=== PATIENT | female | born 1985 | race Caucasian/White ===

== ENCOUNTER 2018-05-16 04:25 | Outpatient (CLI) | payer OTHER ==
[~2018-05-16 04:25] MED LIST: ETON1VAG CERVICAL; FISH OIL OMEGA1 EACH PO; IBUP-1223 PO; LACT1CAP35 PO; MULT-658 PO; ONDA8TAB12 PO; OXYC-302 PO
[2018-05-16 04:43] VITALS: BP 111/63
== END 2018-05-16 05:52 | disposition home or self-care (01) ==
LOC: LDOP 04:25
PROVIDERS: ATTEND Obstetrics & Gynecology
DX: O62.9 Abnormality of forces of labor, unspecified (principal); Z3A.40 40 weeks gestation of pregnancy
CPT/HCPCS: 59025; 99211; G0463

== ENCOUNTER 2018-05-16 23:55 | Inpatient (IN) | payer OTHER ==
[~2018-05-16] VITALS: Ht 172.7 cm; Wt 84.0 kg
[2018-05-17] MEDS ORDERED: OXYTOCIN 30U/ 0.9% NaCL 500ML 500 ML IV ONE (00:16)
[2018-05-17] MEDS ORDERED: LACTATED RINGERS 1,000 ML IV SCH ×2 (00:16→02:34)
[2018-05-17] MEDS ORDERED: FENTANYL PF 100 MCG/2ML ONE ×2 (00:24→02:01)
[2018-05-17] MEDS ORDERED: ONDANSETRON 2MG/ML, 2ML ONE ×2 (00:24→06:07)
[2018-05-17] MEDS ORDERED: METOCLOPRAMIDE 5 MG/ML, 2ML IVPush PRN (00:30)
[2018-05-17] MEDS ORDERED: SODIUM CHLORIDE FLUSH 10ML SYR IVF PRN (00:30)
[2018-05-17] MEDS ORDERED: ALUMINUM/MAG/SIMETHICONE 30 ML UDC PO PRN (00:30)
[2018-05-17] MEDS ORDERED: FENTANYL PF 100 MCG/2ML IVPush PRN (00:30)
[2018-05-17] MEDS ORDERED: SODIUM CITRATE/CITRIC ACID 30 ML UDC PO PRN (00:30)
[2018-05-17] MEDS: ONDANSETRON 2MG/ML, 2ML IVPush PRN ×2 (00:38→06:09)
[2018-05-17] MEDS: FENTANYL PF 100 MCG/2ML IV PRN ×2 (00:41→02:03)
[2018-05-17 01:01] LABS: BASOPHILS % (AUTO) 0 % (0-1); EOSINOPHILS % (AUTO) 0 % (1-7); LYMPHOCYTES % (AUTO) 12 % (22-44); MD NO; MEAN CORPUSCULAR HEMOGLOBIN 30.2 pg (27.0-34.8); MEAN CORPUSCULAR HGB CONC 33.7 g/dL (32.4-35.8); MEAN CORPUSCULAR VOLUME 89.7 fL (80-100); MEAN PLATELET VOLUME 11.6 fL (7.4-10.4); MONOCYTES # (AUTO) 0.91 x10^3/uL (0.2-0.8); MONOCYTES % (AUTO) 6 % (2-9); NEUTROPHILS # (AUTO) 12.21 x10^3/uL (1.8-6.8); NEUTROPHILS % (AUTO) 82 % (42-75); PLATELET COUNT 177 x10^3/uL (130-400); RED BLOOD COUNT 4.53 x10^6/uL (3.82-5.3); RED CELL DISTRIBUTION WIDTH 13.1 % (9.6-15.2)
[2018-05-17] MEDS ORDERED: FENTANYL/BUPIV./NS/PF 250 ML EPIDCONT SCH (02:34)
[2018-05-17] MEDS ORDERED: BUPIVACAINE 0.25% ONE (02:39)
[2018-05-17] MEDS ORDERED: LACTATED RINGERS 1,000 ML IVBOLUS PRN (03:00)
[2018-05-17] MEDS ORDERED: EPHEDRINE 50 MG/ML, 1ML IVPush PRN (03:00)
[2018-05-17] MEDS: D5%-LACTATED RINGERS 1,000 ML IV SCH ×2 (06:05→13:27)
[2018-05-17] MEDS ORDERED: EPHEDRINE 50 MG/ML, 1ML ONE (06:38)
[2018-05-17] MEDS ORDERED: OXYTOCIN 30U/ 0.9% NaCL 500ML 500 ML IV PRN (06:51)
[2018-05-17] MEDS ORDERED: OXYTOCIN 30U/ 0.9% NaCL 500ML 500 ML ONE ×2 (07:30→18:24)
[2018-05-17] MEDS ORDERED: CALCIUM CARBONATE 500 MG TAB.CHEW PO PRN (07:30)
[2018-05-17] MEDS ORDERED: CALCIUM CARBONATE 500 MG TAB.CHEW ONE (07:30)
[2018-05-17] MEDS: IBUPROFEN 800 MG TABLET PO PRN (17:50)
[2018-05-17] MEDS ORDERED: IBUPROFEN 600 MG TABLET ONE (17:52)
[2018-05-17] MEDS ORDERED: MISOPROSTOL 200 MCG TABLET PR PRN (18:00)
[2018-05-17] MEDS ORDERED: METHYLERGONOVINE 0.2 MG/ML IM PRN (18:00)
[2018-05-17] MEDS ORDERED: CARBOPROST TROMETHAMINE 250 MCG/ML, 1ML IM PRN (18:00)
[2018-05-17] MEDS ORDERED: ONDANSETRON 2MG/ML, 2ML IV PRN (18:00)
[2018-05-17] MEDS: OXYTOCIN 30U/ 0.9% NaCL 500ML 500 ML IV SCH (18:44)
[2018-05-17 20:00] VITALS: BP 104/68
[2018-05-17 21:00] VITALS: BP 125/77
[2018-05-17] MEDS: OXYcodone IR 5MG TABLET PO PRN (22:26)
[2018-05-17] MEDS: DOCUSATE 100 MG CAPSULE PO PRN (22:29)
[2018-05-18 01:30] VITALS: BP 123/79
[2018-05-18] MEDS: IBUPROFEN 800 MG TABLET PO PRN ×3 (01:37→20:06)
[2018-05-18] MEDS: OXYTOCIN 30U/ 0.9% NaCL 500ML 500 ML IV SCH ×3 (03:39→23:39)
[2018-05-18] MEDS: OXYcodone IR 5MG TABLET PO PRN ×4 (03:45→13:31)
[2018-05-18 04:30] VITALS: BP 128/71
[2018-05-18 04:55] LABS: MEAN CORPUSCULAR HEMOGLOBIN 30.3 pg (27.0-34.8); MEAN CORPUSCULAR HGB CONC 33.8 g/dL (32.4-35.8); MEAN CORPUSCULAR VOLUME 89.5 fL (80-100); MEAN PLATELET VOLUME 11.3 fL (7.4-10.4); PLATELET COUNT 163 x10^3/uL (130-400); RED BLOOD COUNT 3.97 x10^6/uL (3.82-5.3); RED CELL DISTRIBUTION WIDTH 13.3 % (9.6-15.2)
[2018-05-18 06:02] LABS: BASOPHILS # (AUTO) 0.05 x10^3/uL (0-0.1); BASOPHILS % (AUTO) 0 % (0-1); EOSINOPHILS # (AUTO) 0.06 x10^3/uL (0-0.4); EOSINOPHILS % (AUTO) 0 % (1-7); LYMPHOCYTES # (AUTO) 2.12 x10^3/uL (1-3.4); LYMPHOCYTES % (AUTO) 11 % (22-44); MD SCAN; MONOCYTES % (AUTO) 7 % (2-9); NEUTROPHILS # (AUTO) 15.57 x10^3/uL (1.8-6.8); NEUTROPHILS % (AUTO) 82 % (42-75)
[2018-05-18] MEDS: PRENATAL VIT/IRON/FA 1 EACH TABLET PO SCH (07:50)
[2018-05-18] MEDS: DOCUSATE 100 MG CAPSULE PO PRN ×2 (07:50→20:06)
[2018-05-18 08:00] VITALS: BP 113/74
[2018-05-18] MEDS ORDERED: IBUP-1223 PO (09:00)
[2018-05-18] MEDS ORDERED: OXYC-302 PO (09:01)
[2018-05-18 14:00] VITALS: BP 110/68
[2018-05-18 17:32] VITALS: BP 120/63
[2018-05-18 19:15] VITALS: BP 132/90
[2018-05-19] MEDS: IBUPROFEN 800 MG TABLET PO PRN ×2 (04:12→13:42)
[2018-05-19] MEDS: OXYcodone IR 5MG TABLET PO PRN ×2 (06:37→13:42)
[2018-05-19] MEDS: DOCUSATE 100 MG CAPSULE PO PRN (07:48)
[2018-05-19] MEDS: PRENATAL VIT/IRON/FA 1 EACH TABLET PO SCH (07:48)
[2018-05-19 08:00] VITALS: BP 108/68
[2018-05-19] MEDS: OXYTOCIN 30U/ 0.9% NaCL 500ML 500 ML IV SCH (09:39)
== END 2018-05-19 15:45 | disposition home or self-care (01) | DRG 807 ==
LOC: LDOP 23:55 → LDIP 05-17 00:37 → 2NW 05-17 19:57
PROVIDERS: ADMIT Obstetrics & Gynecology; ATTEND Obstetrics & Gynecology
PROC: 10E0XZZ Delivery of Products of Conception, External Approach (ICD-10-PCS; principal; 2018-05-17)
PROC: 0KQM0ZZ Repair Perineum Muscle, Open Approach (ICD-10-PCS; 2018-05-17)
PROC: 10907ZC Drainage of Amniotic Fluid, Therapeutic from Products of Conception, Via Natural or Artificial Opening (ICD-10-PCS; 2018-05-17)
PROC: 3E0R3BZ Introduction of Anesthetic Agent into Spinal Canal, Percutaneous Approach (ICD-10-PCS; 2018-05-17)
PROC: 00HU33Z Insertion of Infusion Device into Spinal Canal, Percutaneous Approach (ICD-10-PCS; 2018-05-17)
DX: O76 Abnormality in fetal heart rate and rhythm complicating labor and delivery (principal); Z37.0 Single live birth; O69.81X0 Labor and delivery complicated by cord around neck, without compression, not applicable or unspecified; Z3A.40 40 weeks gestation of pregnancy; Z88.0 Allergy status to penicillin; O70.1 Second degree perineal laceration during delivery
CPT/HCPCS: 36415; J7121; 85025; 86850; 86900; G0378; J2405; J3010; J3490; J2590; J7120

== ENCOUNTER 2018-06-08 18:25 | Emergency (ER) | payer OTHER | END 2018-06-08 18:41 | disposition left against medical advice (07) | LOC: ED 18:35 | DX: R50.9 Fever, unspecified (principal); Z53.21 Procedure and treatment not carried out due to patient leaving prior to being seen by health care provider ==